=== PATIENT | female | born 1955 | race African-American/Black ===

== ENCOUNTER 2016-06-21 21:03 | Emergency (ER) | payer MEDICAID, OTHER ==
[~2016-06-21] VITALS: Ht 162.6 cm; Wt 89.0 kg
[~2016-06-21 21:03] MED LIST: AMLO5TAB4 PO; ASPI-1035 PO; LIP40 PO; NAPR550T4 PO
[2016-06-21] MEDS ORDERED: METOCLOPRAMIDE HCL 10MG/2ML VIAL IV ONE (23:45)
[2016-06-21] MEDS ORDERED: KETOROLAC 30MG/ML VIAL IV ONE (23:45)
[2016-06-21] MEDS ORDERED: SODIUM CHLORIDE 0.9% 1,000 ML IV ONE (23:45)
[2016-06-22 00:30] LABS: CHLORIDE 107 mEq/L (98-107); INDEX HEMOLYSI 1 (1-3); INDEX ICTERIC 1 (1-4); INDEX LIPEMIC 1 (1-3)
[2016-06-22 00:35] LABS: ANION GAP 12; CALCIUM 8.7 mg/dL (8.5-10.1); CARBON DIOXIDE 27 mEq/L (21-32); UREA NITROGEN BLOOD 5 mg/dL (7-21); eGFR > 60 mL/min (>60)
[2016-06-22 03:16] VITALS: BP 151/78
== END 2016-06-22 03:45 | disposition home or self-care (01) ==
LOC: ER 21:13
DX: R51 Headache (principal); I10 Essential (primary) hypertension; R11.0 Nausea; I25.2 Old myocardial infarction; J45.909 Unspecified asthma, uncomplicated; Z95.5 Presence of coronary angioplasty implant and graft; F17.200 Nicotine dependence, unspecified, uncomplicated; Z90.49 Acquired absence of other specified parts of digestive tract; Z79.82 Long term (current) use of aspirin; Z88.5 Allergy status to narcotic agent
CPT/HCPCS: 36415; 70450; 80048; 96361; 96374; 96375; 99285; J1885; J2765; J7030

== ENCOUNTER 2016-07-14 19:28 | Inpatient (IN) | payer MEDICAID ==
[~2016-07-14] VITALS: Ht 162.6 cm; Wt 88.9 kg
[2016-07-14] MEDS ORDERED: ONDANSETRON HCL 4MG/2ML VIAL IV STA (19:42)
[2016-07-14] MEDS ORDERED: MORPHINE SULFATE 4 MG/ML CPJ (NOT FOR IM USE) IV STA (19:42)
[2016-07-14 19:59] LABS: BASOPHILS % 2.2 % (0.0-2.0); EOSINOPHILS % 0.7 % (0.0-5.0); HEMATOCRIT. 44.4 % (36.0-48.0); HEMOGLOBIN. 14.9 g/dL (12.0-16.0); LYMPHOCYTES % 57.2 % (20.0-50.0); MEAN CORPUSCULAR HEMOGLOBIN 29.1 pg (28.0-32.0); MEAN CORPUSCULAR HGB CONC 33.6 g/dL (31.0-37.0); MEAN CORPUSCULAR VOLUME 86.8 fL (81.0-99.0); MEAN PLATELET VOLUME 8.4 fl (7.4-10.4); MONOCYTES % 8.3 % (2.0-8.0); NEUTROPHILS % 31.6 % (40.0-76.0); PLATELET 232 x1000/uL (130-400); RED BLOOD CELL COUNT 5.12 mill/uL (4.2-5.4); RED CELL DISTRIBUTION WIDTH 14.6 % (11.6-14.6); WHITE BLOOD COUNT 12.1 x1000/uL (4.5-11.0)
[2016-07-14] MEDS ORDERED: FENTANYL CITRATE/PF 50MCG/ML 2ML VIAL IV ONE (20:00)
[2016-07-14 20:06] LABS: INR 1.1; PROTHROMBIN TIME 11.2 sec
[2016-07-14 20:15] LABS: ALANINE AMINOTRANSFERASE 14 IU/L (13-61); ALBUMIN 3.3 g/dL (3.4-5.0); ANION GAP 11; CALCIUM 8.5 mg/dL (8.5-10.1); CARBON DIOXIDE 26 mEq/L (21-32); CHLORIDE 108 mEq/L (98-107); INDEX HEMOLYSI 1 (1-3); INDEX ICTERIC 1 (1-4); INDEX LIPEMIC 1 (1-3); NT PRO B-TYPE NATRIURETIC PEP 25 pg/mL (5-125); TROPONIN I < 0.02 ng/mL (0.00-0.04); UREA NITROGEN BLOOD 9 mg/dL (7-21); eGFR > 60 mL/min (>60)
[2016-07-14] MEDS ORDERED: ACETAMINOPHEN 325MG TABLET PO PRN (23:00)
[2016-07-14] MEDS ORDERED: CLONIDINE 0.1MG TABLET PO PRN (23:00)
[2016-07-14] MEDS ORDERED: HYDROCODONE/ACETAMINOPHEN 5/325MG TABLET PO PRN (23:00)
[2016-07-14] MEDS ORDERED: IPRATROPIUM/ALBUTEROL 0.5-3(2.5)MG/3ML NEB INH PRN (23:00)
[2016-07-14] MEDS ORDERED: ONDANSETRON HCL 4MG/2ML VIAL IV PRN (23:00)
[2016-07-14] MEDS ORDERED: ENOXAPARIN 40MG/0.4ML SYR SUBCUT SCH (23:00)
[2016-07-14] MEDS ORDERED: MAGNESIUM/ALUMINUM HYDROXIDE/SIMETHICONE 30ML UDC PO PRN (23:00)
[2016-07-14] MEDS ORDERED: DOCUSATE SODIUM 100MG CAPSULE PO PRN (23:00)
[2016-07-14 23:36] LABS: ANION GAP 11; CALCIUM 8.3 mg/dL (8.5-10.1); CARBON DIOXIDE 26 mEq/L (21-32); CHLORIDE 109 mEq/L (98-107); INDEX HEMOLYSI 1 (1-3); INDEX ICTERIC 1 (1-4); INDEX LIPEMIC 1 (1-3); MAGNESIUM 2.1 mg/dL (1.8-2.4); UREA NITROGEN BLOOD 9 mg/dL (7-21); eGFR > 60 mL/min (>60)
[2016-07-15 03:20] VITALS: BP 125/83
[2016-07-15 04:00] VITALS: BP 125/83
[2016-07-15] MEDS ORDERED: ESCI10TA54 PO (04:34)
[2016-07-15] MEDS ORDERED: GABA-531 PO (04:34)
[2016-07-15] MEDS ORDERED: VENTOLIN HFA 90MCG (04:34)
[2016-07-15] MEDS ORDERED: NAPROXEN SODIUM 500 MG PO PRN (04:45)
[2016-07-15] MEDS ORDERED: NAPROXEN 500MG TABLET PO PRN (04:49)
[2016-07-15 08:00] VITALS: BP 111/56
[2016-07-15 08:55] LABS: CREATINE KINASE 86 IU/L (26-192); CREATINE KINASE MB FRACTION < 0.5 ng/mL (0.5-3.6); HDL CHOLESTEROL 36 mg/dL (40-59); INDEX HEMOLYSI 1 (1-3); INDEX ICTERIC 1 (1-4); INDEX LIPEMIC 1 (1-3); LDL CHOLESTEROL 58 mg/dL (5-100); TRIGLYCERIDE 88 mg/dL (0-150); TROPONIN I < 0.02 ng/mL (0.00-0.04)
[2016-07-15] MEDS ORDERED: ATORVASTATIN CALCIUM 40MG TABLET PO SCH (09:00)
[2016-07-15] MEDS ORDERED: ENOXAPARIN 30MG/0.3ML SYR SUBCUT SCH (09:00)
[2016-07-15] MEDS ORDERED: CITALOPRAM HYDROBROMIDE 20MG TABLET PO SCH (09:00)
[2016-07-15] MEDS ORDERED: ASPIRIN 81MG EC TABLET PO SCH ×2 (09:00)
[2016-07-15] MEDS ORDERED: AMLODIPINE 10MG TABLET PO SCH (09:00)
[2016-07-15] MEDS ORDERED: MEDICATION NOT ON FORMULARY EA (Escitalopram Oxalate 1 TAB) PO SCH (09:00)
[2016-07-15] MEDS: GABAPENTIN 300MG CAPSULE PO SCH ×2 (09:11→14:35)
[2016-07-15] MEDS ORDERED: REGADENOSON 0.4 MG/5 ML IV ONE ×2 (10:45→12:12)
[2016-07-15 11:30] VITALS: BP 120/75
[2016-07-15 13:02] LABS: *AMPHETAMINES SCREEN URINE NEGATIVE (NEGATIVE); *BARBITURATES SCREEN URINE NEGATIVE (NEGATIVE); *BENZODIAZEPINES SCREEN URINE NEGATIVE (NEGATIVE); *COCAINE SCREEN URINE NEGATIVE (NEGATIVE); CANNABINOID URINE SCREEN NEGATIVE (NEGATIVE); ECSTASY MDMA SCREEN URINE NEGATIVE (NEGATIVE); METHADONE URINE SCREEN NEGATIVE (NEGATIVE); OPIATES URINE SCREEN NEGATIVE (NEGATIVE); PHENCYCLIDINE URINE SCREEN NEGATIVE (NEGATIVE)
[2016-07-15 15:40] VITALS: BP 120/75
[2016-07-15 16:33] LABS: CREATINE KINASE 88 IU/L (26-192); CREATINE KINASE MB FRACTION < 0.5 ng/mL (0.5-3.6); INDEX HEMOLYSI 1 (1-3); TROPONIN I < 0.02 ng/mL (0.00-0.04)
== END 2016-07-15 17:00 | disposition home or self-care (01) | DRG 198 ==
LOC: ER 19:28 → 6WST 23:06
PROVIDERS: ADMIT Internal Medicine; ATTEND Internal Medicine
DX: R07.89 Other chest pain (principal); I25.2 Old myocardial infarction; I11.9 Hypertensive heart disease without heart failure; I10 Essential (primary) hypertension; I25.10 Atherosclerotic heart disease of native coronary artery without angina pectoris; D64.9 Anemia, unspecified; E78.5 Hyperlipidemia, unspecified; F17.210 Nicotine dependence, cigarettes, uncomplicated; J45.909 Unspecified asthma, uncomplicated; Z95.5 Presence of coronary angioplasty implant and graft; Z82.49 Family history of ischemic heart disease and other diseases of the circulatory system; Z90.49 Acquired absence of other specified parts of digestive tract; Z88.6 Allergy status to analgesic agent
CPT/HCPCS: 36415; 71010; 78452; 80048; 80053; 80061; 80305; 82550; 82553; 83735; 83880; 84443; 84484; 85025; 85610; 93005; 93017; 93306; 93970; 96374; 96375; 99285; A9500; J1650; J2270; J2405; J2785; J3010

== ENCOUNTER 2017-08-07 13:50 | Emergency (ER) | payer MEDICAID ==
[~2017-08-07] VITALS: Ht 162.6 cm; Wt 85.0 kg
[~2017-08-07 13:50] MED LIST changes: -ASPI-1035 PO; +ASPI-1159 PO; +ESCI10TA54 PO; +GABA-531 PO; +NAPR-1164 PO; -NAPR550T4 PO; +VENTOLIN HFA 90MCG
[2017-08-07] MEDS ORDERED: CHLO25TA27 GT (13:59)
[2017-08-07] MEDS ORDERED: CARV3.1242 PO (13:59)
[2017-08-07] MEDS ORDERED: SODIUM CHLORIDE 0.9% 1,000 ML IV ONE (14:28)
[2017-08-07 14:54] LABS: BASOPHILS % 1.3 % (0.0-2.0); EOSINOPHILS % 1.1 % (0.0-5.0); HEMATOCRIT. 47.3 % (36.0-48.0); LYMPHOCYTES % 35.1 % (20.0-50.0); MEAN CORPUSCULAR HEMOGLOBIN 29.5 pg (28.0-32.0); MEAN CORPUSCULAR VOLUME 87.1 fL (81.0-99.0); MEAN PLATELET VOLUME 8.4 fl (7.4-10.4); MONOCYTES % 11.1 % (2.0-8.0); NEUTROPHILS % 51.4 % (40.0-76.0); PLATELET 249 x1000/uL (130-400); RED BLOOD CELL COUNT 5.43 mill/uL (4.2-5.4); RED CELL DISTRIBUTION WIDTH 13.9 % (11.6-14.6)
[2017-08-07 14:58] LABS: CHLORIDE 102 mEq/L (98-107)
[2017-08-07 14:59] LABS: INR 1.1; PROTHROMBIN TIME 11.6 sec (9.4-11.6)
[2017-08-07] MEDS ORDERED: FAMOTIDINE 20MG/2ML VIAL IV ONE (16:15)
[2017-08-07 17:07] VITALS: BP 149/72
== END 2017-08-07 17:11 | disposition home or self-care (01) ==
LOC: ER 13:50
DX: I95.1 Orthostatic hypotension (principal); I25.2 Old myocardial infarction; I10 Essential (primary) hypertension; Z88.5 Allergy status to narcotic agent
CPT/HCPCS: 36415; 71045; 80053; 83880; 84484; 85025; 85610; 93005; 96361; 96374; 99285; J3490; J7030

== ENCOUNTER 2018-08-11 11:29 | Inpatient (IN) | payer MEDICAID ==
[~2018-08-11] VITALS: Ht 162.6 cm; Wt 95.7 kg
[~2018-08-11 11:29] MED LIST changes: -ASPI-1159 PO; +ASPI-1393 PO; +CARV3.1242 PO; +CHLO25TA27 GT
[2018-08-11] MEDS ORDERED: ONDANSETRON HCL 4MG/2ML INJ IV STA ×2 (12:05→16:39)
[2018-08-11] MEDS ORDERED: KETOROLAC 30MG/ML VIAL IV STA (12:05)
[2018-08-11] MEDS ORDERED: SODIUM CHLORIDE 0.9% 1,000 ML IV ONE (12:05)
[2018-08-11 12:24] LABS: BASOPHILS % 0.8 % (0.0-2.0); EOSINOPHILS % 0.5 % (0.0-5.0); HEMOGLOBIN. 15.3 g/dL (12.0-16.0); LYMPHOCYTES % 24.1 % (20.0-50.0); MEAN CORPUSCULAR HEMOGLOBIN 29.4 pg (28.0-32.0); MEAN CORPUSCULAR VOLUME 88.4 fL (81.0-99.0); MEAN PLATELET VOLUME 8.6 fl (7.4-10.4); NEUTROPHILS % 67.6 % (40.0-76.0); PLATELET 258 x1000/uL (130-400); RED BLOOD CELL COUNT 5.21 mill/uL (4.2-5.4); RED CELL DISTRIBUTION WIDTH 14.9 % (11.6-14.6)
[2018-08-11 12:29] LABS: CHLORIDE 109 mEq/L (98-107)
[2018-08-11 12:34] LABS: INR 1.1; PARTIAL THROMBOPLASTIN TIME 25.5 sec (23.4-31.0); PROTHROMBIN TIME 11.1 sec (9.6-11.0)
[2018-08-11] MEDS ORDERED: KETOROLAC 15MG/ML VIAL IV SCH (12:45)
[2018-08-11 12:55] LABS: CLARITY URINE CLEAR (CLEAR); COLOR URINE YELLOW (YELLOW); KETONES URINE NEGATIVE (NEGATIVE); LEUKOCYTE ESTERASE URINE NEGATIVE (NEGATIVE); NITRITE URINE NEGATIVE (NEGATIVE); OCCULT BLOOD URINE NEGATIVE (NEGATIVE); PROTEIN URINE TRACE (NEGATIVE); SPECIFIC GRAVITY URINE 1.023 (1.005-1.030)
[2018-08-11] MEDS ORDERED: SODIUM CHLORIDE 0.9% 1000ML BAG (SEPSIS BOLUS) IV ONE (14:15)
[2018-08-11] MEDS ORDERED: LEVOFLOXACIN 750MG PREMIX 150 ML IV ONE (14:15)
[2018-08-11] MEDS ORDERED: MORPHINE SULFATE 4 MG/ML CPJ (NOT FOR IM USE) IV STA (16:39)
[2018-08-11] MEDS ORDERED: DIPHENHYDRAMINE 50MG/ML VIAL IV ONE (16:45)
[2018-08-11] MEDS ORDERED: IPRATROPIUM/ALBUTEROL 0.5-3(2.5)MG/3ML NEB INH PRN (17:15)
[2018-08-11] MEDS ORDERED: LEVOFLOXACIN 500MG PREMIX 100 ML IV SCH (17:15)
[2018-08-11] MEDS ORDERED: ACETAMINOPHEN 325MG TABLET PO PRN (17:15)
[2018-08-11] MEDS ORDERED: DOCUSATE SODIUM 100MG CAPSULE PO PRN (17:15)
[2018-08-11] MEDS ORDERED: GUAIFENESIN 200MG/10ML SUGAR FREE UDC PO PRN (17:15)
[2018-08-11] MEDS: DIPHENHYDRAMINE 50MG/ML VIAL IV PRN (21:10)
[2018-08-11] MEDS: CLONIDINE 0.1MG TABLET PO PRN (21:11)
[2018-08-11] MEDS ORDERED: ERGO2000 PO (22:05)
[2018-08-11 22:11] VITALS: BP 161/73
[2018-08-11 22:12] VITALS: BP 161/73
[2018-08-11] MEDS: ENOXAPARIN 40MG/0.4ML SYR SUBCUT SCH (22:28)
[2018-08-12] VITALS: BP 115/51
[2018-08-12] MEDS: HYDROMORPHONE HCL/PF 2MG/ML CPJ IV PRN ×3 (03:41→20:33)
[2018-08-12 04:00] VITALS: BP 120/53
[2018-08-12 06:51] LABS: CHLORIDE 113 mEq/L (98-107)
[2018-08-12 06:59] LABS: BASOPHILS % 0.6 % (0.0-2.0); HEMATOCRIT. 38.7 % (36.0-48.0); HEMOGLOBIN. 12.7 g/dL (12.0-16.0); LYMPHOCYTES % 52.5 % (20.0-50.0); MEAN CORPUSCULAR HEMOGLOBIN 29.1 pg (28.0-32.0); MEAN CORPUSCULAR VOLUME 88.7 fL (81.0-99.0); MEAN PLATELET VOLUME 8.8 fl (7.4-10.4); MONOCYTES % 8.7 % (2.0-8.0); NEUTROPHILS % 37.2 % (40.0-76.0); PLATELET 219 x1000/uL (130-400); RED BLOOD CELL COUNT 4.37 mill/uL (4.2-5.4); RED CELL DISTRIBUTION WIDTH 14.6 % (11.6-14.6)
[2018-08-12 07:06] LABS: CREATINE KINASE 111 IU/L (26-192); HDL CHOLESTEROL 27 mg/dL (40-59); LDL CHOLESTEROL 62 mg/dL (5-100)
[2018-08-12 07:11] LABS: CREATINE KINASE MB FRACTION 1.3 ng/mL (0.5-3.6)
[2018-08-12 08:00] VITALS: BP 135/56
[2018-08-12 12:00] VITALS: BP 126/68
[2018-08-12] MEDS: LEVOFLOXACIN 500MG PREMIX 100 ML IV SCH (14:31)
[2018-08-12 16:00] VITALS: BP 143/57
[2018-08-12 20:00] VITALS: BP 157/49
[2018-08-12] MEDS: ONDANSETRON HCL 4MG/2ML INJ IV PRN (20:32)
[2018-08-12] MEDS: ENOXAPARIN 40MG/0.4ML SYR SUBCUT SCH (20:32)
[2018-08-13] VITALS (7 sets, daily range): BP systolic 130–164; BP diastolic 50–84
[2018-08-13] MEDS: ONDANSETRON HCL 4MG/2ML INJ IV PRN ×2 (05:13→20:09)
[2018-08-13] MEDS: HYDROMORPHONE HCL/PF 2MG/ML CPJ IV PRN ×2 (05:16→17:08)
[2018-08-13] MEDS: HYDROCODONE/ACETAMINOPHEN 5/325MG TABLET PO PRN (12:47)
[2018-08-13] MEDS: LEVOFLOXACIN 500MG PREMIX 100 ML IV SCH (14:29)
[2018-08-13] MEDS: ENOXAPARIN 40MG/0.4ML SYR SUBCUT SCH (20:10)
[2018-08-14] VITALS: BP 136/55
[2018-08-14 04:00] VITALS: BP 140/65
[2018-08-14 08:00] VITALS: BP 111/54
[2018-08-14] MEDS: HYDROMORPHONE HCL/PF 2MG/ML CPJ IV PRN ×3 (11:02→21:02)
[2018-08-14 12:00] VITALS: BP 121/60
[2018-08-14] MEDS: LEVOFLOXACIN 500MG PREMIX 100 ML IV SCH (15:06)
[2018-08-14 16:00] VITALS: BP 141/52
[2018-08-14] MEDS ORDERED: ONDA4TAB5 MT (18:08)
[2018-08-14] MEDS ORDERED: HYDR-4001 MT (18:08)
[2018-08-14 20:00] VITALS: BP 166/57
[2018-08-14] MEDS: ENOXAPARIN 30MG/0.3ML SYR SUBCUT SCH (21:01)
[2018-08-15] VITALS: BP 140/53
[2018-08-15] MEDS: HYDROMORPHONE HCL/PF 2MG/ML CPJ IV PRN ×5 (01:45→23:37)
[2018-08-15] MEDS: ONDANSETRON HCL 4MG/2ML INJ IV PRN ×3 (01:45→18:30)
[2018-08-15 04:00] VITALS: BP 104/52
[2018-08-15 08:00] VITALS: BP 114/61
[2018-08-15] MEDS: ENOXAPARIN 30MG/0.3ML SYR SUBCUT SCH ×2 (08:08→21:00)
[2018-08-15] MEDS: LEVOFLOXACIN 500MG PREMIX 100 ML IV SCH (14:21)
[2018-08-15 16:00] VITALS: BP 121/63
[2018-08-15 20:00] VITALS: BP 113/49
[2018-08-15] MEDS: DIPHENHYDRAMINE 50MG/ML VIAL IV PRN (21:38)
[2018-08-16] VITALS: BP 94/45
[2018-08-16 01:06] LABS: BASOPHILS % 0.2 % (0.0-2.0); HEMATOCRIT. 37.2 % (36.0-48.0); HEMOGLOBIN. 12.6 g/dL (12.0-16.0); LYMPHOCYTES % 18.2 % (20.0-50.0); MEAN CORPUSCULAR HEMOGLOBIN 29.6 pg (28.0-32.0); MEAN CORPUSCULAR VOLUME 87.4 fL (81.0-99.0); MEAN PLATELET VOLUME 8.8 fl (7.4-10.4); NEUTROPHILS % 72.6 % (40.0-76.0); PLATELET 210 x1000/uL (130-400); RED BLOOD CELL COUNT 4.25 mill/uL (4.2-5.4); RED CELL DISTRIBUTION WIDTH 14.7 % (11.6-14.6)
[2018-08-16 01:17] LABS: CHLORIDE 105 mEq/L (98-107)
[2018-08-16 04:00] VITALS: BP 100/48
[2018-08-16] MEDS: HYDROMORPHONE HCL/PF 2MG/ML CPJ IV PRN ×4 (05:54→23:07)
[2018-08-16] MEDS: ONDANSETRON HCL 4MG/2ML INJ IV PRN ×2 (05:55→20:52)
[2018-08-16 06:26] LABS: BASOPHILS % 0.5 % (0.0-2.0); EOSINOPHILS % 0.1 % (0.0-5.0); HEMATOCRIT. 38.7 % (36.0-48.0); LYMPHOCYTES % 14.4 % (20.0-50.0); MEAN CORPUSCULAR HEMOGLOBIN 29.5 pg (28.0-32.0); MEAN CORPUSCULAR VOLUME 87.7 fL (81.0-99.0); MEAN PLATELET VOLUME 9.1 fl (7.4-10.4); MONOCYTES % 9.2 % (2.0-8.0); NEUTROPHILS % 75.8 % (40.0-76.0); PLATELET 221 x1000/uL (130-400); RED BLOOD CELL COUNT 4.41 mill/uL (4.2-5.4); RED CELL DISTRIBUTION WIDTH 14.7 % (11.6-14.6)
[2018-08-16 06:30] LABS: CHLORIDE 104 mEq/L (98-107)
[2018-08-16 08:00] VITALS: BP 99/42
[2018-08-16] MEDS: ENOXAPARIN 30MG/0.3ML SYR SUBCUT SCH (09:27)
[2018-08-16] MEDS ORDERED: PIPERACILLIN/TAZ 3.375G PREMIX 50 ML IV SCH (11:00)
[2018-08-16 12:00] VITALS: BP 105/54
[2018-08-16] MEDS: PIPERACILLIN/TAZ 3.375G PREMIX 50 ML IV SCH ×2 (12:34→18:00)
[2018-08-16 13:29] LABS: HEPATITIS B SURFACE ANTIGEN NEGATIVE
[2018-08-16 13:59] LABS: HEPATITIS A AB IGM NEGATIVE (NEGATIVE)
[2018-08-16] MEDS ORDERED: NEOSTIGMINE METHYLSULFATE 1MG/ML 10 ML VIAL ONE (14:37)
[2018-08-16] MEDS ORDERED: ROCURONIUM BROMIDE 10MG/ML VIAL 5ML IV ONE (14:37)
[2018-08-16] MEDS ORDERED: PROPOFOL 200MG/20ML VIAL IV ONE (14:37)
[2018-08-16] MEDS ORDERED: HYDROMORPHONE HCL/PF 2MG/ML (OR) ONE (14:37)
[2018-08-16] MEDS ORDERED: MIDAZOLAM HCL 2 MG/2 ML VIAL ONE (14:38)
[2018-08-16] MEDS ORDERED: GLYCOPYRROLATE 0.2 MG/ML 2ML VIAL ONE (14:38)
[2018-08-16] MEDS ORDERED: CEFAZOLIN SODIUM 1000MG/VIAL ONE (14:39)
[2018-08-16] MEDS ORDERED: SUCCINYLCHOLINE CHLORIDE 200MG/10ML IV ONE (14:39)
[2018-08-16] MEDS ORDERED: METOCLOPRAMIDE HCL 10MG/2ML VIAL ONE (15:57)
[2018-08-16] MEDS ORDERED: DEXAMETHASONE 4MG/ML 1ML VIAL ONE (15:57)
[2018-08-16] MEDS ORDERED: ONDANSETRON HCL 4MG/2ML INJ ONE (15:57)
[2018-08-16 20:00] VITALS: BP 130/51
[2018-08-16] MEDS: HYDROCODONE/ACETAMINOPHEN 5/325MG TABLET PO PRN (20:38)
[2018-08-17] VITALS: BP 117/52
[2018-08-17 04:00] VITALS: BP 119/56
[2018-08-17] MEDS: PIPERACILLIN/TAZ 3.375G PREMIX 50 ML IV SCH ×3 (05:55→18:04)
[2018-08-17] MEDS: HYDROMORPHONE HCL/PF 2MG/ML CPJ IV PRN ×5 (05:55→12:06)
[2018-08-17 07:00] LABS: BASOPHILS % 0.3 % (0.0-2.0); HEMATOCRIT. 38.5 % (36.0-48.0); HEMOGLOBIN. 12.7 g/dL (12.0-16.0); MEAN PLATELET VOLUME 9.4 fl (7.4-10.4); MONOCYTES % 9.6 % (2.0-8.0); NEUTROPHILS % 76.1 % (40.0-76.0); PLATELET 218 x1000/uL (130-400); RED BLOOD CELL COUNT 4.38 mill/uL (4.2-5.4); RED CELL DISTRIBUTION WIDTH 14.5 % (11.6-14.6)
[2018-08-17 07:20] LABS: CHLORIDE 103 mEq/L (98-107)
[2018-08-17 08:00] VITALS: BP 121/70
[2018-08-17] MEDS ORDERED: FENTANYL CITRATE/PF 50MCG/ML 2ML VIAL ONE (09:22)
[2018-08-17] MEDS ORDERED: MIDAZOLAM HCL 2 MG/2 ML VIAL ONE (09:22)
[2018-08-17] MEDS ORDERED: SUCCINYLCHOLINE CHLORIDE 200MG/10ML IV ONE (09:22)
[2018-08-17] MEDS ORDERED: ROCURONIUM BROMIDE 10MG/ML VIAL 5ML IV ONE (09:23)
[2018-08-17] MEDS ORDERED: CEFAZOLIN SODIUM 1000MG/VIAL ONE ×2 (09:23→09:46)
[2018-08-17] MEDS ORDERED: SODIUM CHLORIDE 0.9% 10ML VIAL ONE ×2 (09:23→09:43)
[2018-08-17] MEDS ORDERED: LIDOCAINE HCL/PF 1% 10 MG/ML 5ML VIAL ONE (09:23)
[2018-08-17] MEDS ORDERED: PROPOFOL 200MG/20ML VIAL IV ONE (09:23)
[2018-08-17] MEDS ORDERED: PHENYLEPHRINE HCL 10 MG/ML 1ML (IV VIAL) IV ONE (09:28)
[2018-08-17] MEDS ORDERED: NEOSTIGMINE METHYLSULFATE 1MG/ML 10 ML VIAL ONE (09:59)
[2018-08-17] MEDS ORDERED: GLYCOPYRROLATE 0.2 MG/ML 2ML VIAL ONE (09:59)
[2018-08-17] MEDS ORDERED: ONDANSETRON HCL 4MG/2ML INJ ONE (10:03)
[2018-08-17] MEDS ORDERED: DEXAMETHASONE 4MG/ML 1ML VIAL ONE (10:04)
[2018-08-17] MEDS ORDERED: SKIN ADHESIVE 0.7 GM EA TOP ONE ×2 (10:26→10:27)
[2018-08-17] MEDS ORDERED: LABETALOL HCL 5MG/ML VIAL 20ML IV ONE (10:37)
[2018-08-17] MEDS: ONDANSETRON HCL 4MG/2ML INJ IV PRN (11:26)
[2018-08-17] MEDS ORDERED: ACETAMINOPHEN 650MG SUPP PR PRN (11:30)
[2018-08-17] MEDS ORDERED: HYDROMORPHONE PCA 50 ML IV ONE (11:51)
[2018-08-17 12:00] VITALS: BP 150/71
[2018-08-17] MEDS ORDERED: HYDROMORPHONE PCA 10MG/50ML IV PRN (12:00)
[2018-08-17] MEDS ORDERED: NALOXONE INJ IV PRN (12:00)
[2018-08-17] MEDS ORDERED: DIPHENHYDRAMINE INJ IV PRN (12:00)
[2018-08-17] MEDS: CEFAZOLIN 1000MG PREMIX 50 ML IV SCH ×2 (12:30→19:59)
[2018-08-17] MEDS: ONDANSETRON INJ IV PRN (13:07)
[2018-08-17 16:00] VITALS: BP 140/75
[2018-08-17] MEDS: FAMOTIDINE 20MG/2ML VIAL IV SCH (19:59)
[2018-08-17 20:00] VITALS: BP 150/96
[2018-08-17] MEDS ORDERED: ONDANSETRON HCL 4MG/2ML INJ IV PRN (23:00)
[2018-08-18] VITALS: BP 172/84
[2018-08-18] MEDS: ONDANSETRON INJ IV PRN ×4 (00:18→17:09)
[2018-08-18] MEDS: PIPERACILLIN/TAZ 3.375G PREMIX 50 ML IV SCH ×5 (00:18→23:42)
[2018-08-18] MEDS: CLONIDINE 0.1MG TABLET PO PRN (01:34)
[2018-08-18 04:00] VITALS: BP 173/73
[2018-08-18] MEDS: CEFAZOLIN 1000MG PREMIX 50 ML IV SCH ×2 (04:19→15:38)
[2018-08-18 06:40] LABS: BASOPHILS % 0.1 % (0.0-2.0); HEMATOCRIT. 36.3 % (36.0-48.0); LYMPHOCYTES % 14.4 % (20.0-50.0); MEAN CORPUSCULAR HEMOGLOBIN 28.9 pg (28.0-32.0); MEAN PLATELET VOLUME 9.5 fl (7.4-10.4); MONOCYTES % 13.4 % (2.0-8.0); NEUTROPHILS % 72.1 % (40.0-76.0); PLATELET 234 x1000/uL (130-400); RED BLOOD CELL COUNT 4.13 mill/uL (4.2-5.4); RED CELL DISTRIBUTION WIDTH 14.4 % (11.6-14.6)
[2018-08-18 06:42] LABS: CHLORIDE 105 mEq/L (98-107)
[2018-08-18] MEDS ORDERED: KETOROLAC 30MG/ML VIAL IV PRN (07:45)
[2018-08-18] MEDS: FAMOTIDINE 20MG/2ML VIAL IV SCH ×2 (07:59→20:46)
[2018-08-18] MEDS: ENOXAPARIN 30MG/0.3ML SYR SUBCUT SCH ×2 (08:00→20:46)
[2018-08-18 08:30] VITALS: BP 168/82
[2018-08-18] MEDS: LORAZEPAM 0.5MG TABLET PO SCH ×2 (09:00→17:00)
[2018-08-18 12:30] VITALS: BP 154/62
[2018-08-18 16:30] VITALS: BP 126/76
[2018-08-18 20:00] VITALS: BP 141/52
[2018-08-19] VITALS (7 sets, daily range): BP systolic 98–180; BP diastolic 47–70
[2018-08-19] MEDS: ONDANSETRON INJ IV PRN ×2 (02:53→08:31)
[2018-08-19] MEDS: PIPERACILLIN/TAZ 3.375G PREMIX 50 ML IV SCH ×4 (05:24→23:37)
[2018-08-19] MEDS: CLONIDINE 0.1MG TABLET PO PRN (05:24)
[2018-08-19 05:39] LABS: BASOPHILS % 0.3 % (0.0-2.0); CHLORIDE 105 mEq/L (98-107); HEMATOCRIT. 35.4 % (36.0-48.0); HEMOGLOBIN. 11.8 g/dL (12.0-16.0); LYMPHOCYTES % 17.2 % (20.0-50.0); MEAN CORPUSCULAR HEMOGLOBIN 29.1 pg (28.0-32.0); MEAN CORPUSCULAR VOLUME 87.2 fL (81.0-99.0); MEAN PLATELET VOLUME 8.8 fl (7.4-10.4); MONOCYTES % 12.6 % (2.0-8.0); NEUTROPHILS % 69.9 % (40.0-76.0); PLATELET 262 x1000/uL (130-400); RED BLOOD CELL COUNT 4.05 mill/uL (4.2-5.4); RED CELL DISTRIBUTION WIDTH 14.2 % (11.6-14.6)
[2018-08-19] MEDS: FAMOTIDINE 20MG/2ML VIAL IV SCH ×2 (08:31→20:10)
[2018-08-19] MEDS: LORAZEPAM 0.5MG TABLET PO SCH ×2 (08:33→17:00)
[2018-08-19] MEDS: ENOXAPARIN 30MG/0.3ML SYR SUBCUT SCH ×2 (08:33→20:11)
[2018-08-19] MEDS ORDERED: HYDROMORPHONE PCA 50 ML IV PRN (15:13)
[2018-08-19] MEDS ORDERED: IBUPROFEN 800MG TABLET PO PRN (22:00)
[2018-08-19] MEDS ORDERED: OXYCODONE HCL/ACETAMINOPHEN 5/325MG TABLET PO PRN (22:00)
[2018-08-20] VITALS (7 sets, daily range): BP systolic 129–175; BP diastolic 51–70
[2018-08-20 05:06] LABS: HEMATOCRIT. 34.9 % (36.0-48.0); HEMOGLOBIN. 11.5 g/dL (12.0-16.0); MEAN CORPUSCULAR VOLUME 87.6 fL (81.0-99.0); MEAN PLATELET VOLUME 8.7 fl (7.4-10.4); PLATELET 258 x1000/uL (130-400); RED BLOOD CELL COUNT 3.98 mill/uL (4.2-5.4); RED CELL DISTRIBUTION WIDTH 14.1 % (11.6-14.6)
[2018-08-20] MEDS: PIPERACILLIN/TAZ 3.375G PREMIX 50 ML IV SCH ×4 (05:56→23:41)
[2018-08-20 06:42] LABS: CHLORIDE 102 mEq/L (98-107)
[2018-08-20] MEDS: LORAZEPAM 0.5MG TABLET PO SCH ×3 (09:00→17:00)
[2018-08-20] MEDS: FAMOTIDINE 20MG/2ML VIAL IV SCH ×3 (09:13→21:00)
[2018-08-20] MEDS: ENOXAPARIN 30MG/0.3ML SYR SUBCUT SCH ×2 (09:15→20:53)
[2018-08-20 10:40] LABS: PLATELET ESTIMATE NORMAL
[2018-08-20] MEDS ORDERED: POTASSIUM CHLORIDE 20MEQ/PACKET PO NR (14:30)
[2018-08-20] MEDS: MAGNESIUM/ALUMINUM HYDROXIDE/SIMETHICONE 30ML UDC PO PRN (18:35)
[2018-08-20] MEDS: AMLODIPINE 2.5MG TABLET PO SCH (20:53)
[2018-08-21] MEDS: MAGNESIUM/ALUMINUM HYDROXIDE/SIMETHICONE 30ML UDC PO PRN (03:21)
[2018-08-21 04:00] VITALS: BP 145/60
[2018-08-21] MEDS: PIPERACILLIN/TAZ 3.375G PREMIX 50 ML IV SCH ×2 (06:00→12:00)
[2018-08-21 07:01] LABS: HEMOGLOBIN. 12.5 g/dL (12.0-16.0); MEAN CORPUSCULAR HEMOGLOBIN 28.9 pg (28.0-32.0); MEAN PLATELET VOLUME 8.7 fl (7.4-10.4); PLATELET 310 x1000/uL (130-400); RED BLOOD CELL COUNT 4.31 mill/uL (4.2-5.4); RED CELL DISTRIBUTION WIDTH 14.1 % (11.6-14.6)
[2018-08-21 07:35] LABS: CHLORIDE 99 mEq/L (98-107)
[2018-08-21 08:00] VITALS: BP 121/61
[2018-08-21] MEDS ORDERED: POTASSIUM CHLORIDE 20MEQ/PACKET PO NR (08:15)
[2018-08-21] MEDS: LORAZEPAM 0.5MG TABLET PO SCH (08:44)
[2018-08-21] MEDS: ENOXAPARIN 30MG/0.3ML SYR SUBCUT SCH (08:45)
[2018-08-21] MEDS ORDERED: FAMOTIDINE 20MG TABLET PO SCH (09:00)
[2018-08-21] MEDS: AMLODIPINE 2.5MG TABLET PO SCH (09:12)
[2018-08-21 12:00] VITALS: BP 153/57
[2018-08-21 14:06] VITALS: BP 153/57
[2018-08-21 19:31] LABS: PLATELET ESTIMATE NORMAL
== END 2018-08-21 15:00 | disposition home or self-care (01) | DRG 951 ==
LOC: ER 11:31 → 7WST 16:48 → ENRESERV 19:37
PROVIDERS: ADMIT Internal Medicine; ATTEND Internal Medicine
PROC: 0UT94ZZ Resection of Uterus, Percutaneous Endoscopic Approach (ICD-10-PCS; principal; 2018-08-17)
PROC: 0UT74ZZ Resection of Bilateral Fallopian Tubes, Percutaneous Endoscopic Approach (ICD-10-PCS; 2018-08-17)
PROC: 0UT24ZZ Resection of Bilateral Ovaries, Percutaneous Endoscopic Approach (ICD-10-PCS; 2018-08-17)
DX: D49.59 Neoplasm of unspecified behavior of other genitourinary organ (principal); J18.9 Pneumonia, unspecified organism; E87.8 Other disorders of electrolyte and fluid balance, not elsewhere classified; E66.01 Morbid (severe) obesity due to excess calories; K56.7 Ileus, unspecified; N83.209 Unspecified ovarian cyst, unspecified side; Z68.36 Body mass index [BMI] 36.0-36.9, adult; D21.5 Benign neoplasm of connective and other soft tissue of pelvis; I10 Essential (primary) hypertension; E78.5 Hyperlipidemia, unspecified; F17.210 Nicotine dependence, cigarettes, uncomplicated; R74.0 Nonspecific elevation of levels of transaminase and lactic acid dehydrogenase [LDH]; E78.00 Pure hypercholesterolemia, unspecified; I25.10 Atherosclerotic heart disease of native coronary artery without angina pectoris; N83.519 Torsion of ovary and ovarian pedicle, unspecified side; Z95.5 Presence of coronary angioplasty implant and graft; Z88.5 Allergy status to narcotic agent; Z79.899 Other long term (current) drug therapy; Z90.49 Acquired absence of other specified parts of digestive tract; Z90.710 Acquired absence of both cervix and uterus; I25.2 Old myocardial infarction; Z79.82 Long term (current) use of aspirin; Z71.6 Tobacco abuse counseling; Z71.89 Other specified counseling
CPT/HCPCS: 36415; 71045; 72195; 74018; 74176; 76830; 76856; 80048; 80061; 80076; 82378; 82550; 82553; 82962; 83605; 83615; 83735; 83880; 84145; 84443; 84484; 86304; 86705; 86709; 86803; 86850; 86900; 87340; 88307; 88309; 88329; 93005; 93970; 99285; C1893; J0330; J0690; J1100; J1170; J1200; J1650; J1885; J1956; J2250; J2370; J2405; J2543; J2704; J2710; J2765; J3010; J3490; J7030; J7040; J7050

== ENCOUNTER 2021-01-06 10:44 | Emergency (ER) | payer MEDICAID ==
[~2021-01-06] VITALS: Ht 167.6 cm; Wt 80.0 kg
[~2021-01-06 10:44] MED LIST changes: -ASPI-1393 PO; +ASPI-1497 PO; -CARV3.1242 PO; -CHLO25TA27 GT; +ERGO2000 PO; -ESCI10TA54 PO; -GABA-531 PO; +HYDR-4001 MT; +ONDA4TAB5 MT; -VENTOLIN HFA 90MCG
[2021-01-06] MEDS ORDERED: FAMOTIDINE 20MG/2ML VIAL IV STA (11:03)
[2021-01-06 11:35] LABS: BASOPHILS % 1.1 % (0.0-2.0); EOSINOPHILS % 0.3 % (0.0-5.0); HEMATOCRIT. 44.7 % (36.0-48.0); HEMOGLOBIN. 15.1 g/dL (12.0-16.0); LYMPHOCYTES % 40.4 % (20.0-50.0); MEAN CORPUSCULAR HEMOGLOBIN 29.3 pg (28.0-32.0); MEAN CORPUSCULAR VOLUME 86.7 fL (81.0-99.0); MEAN PLATELET VOLUME 8.5 fl (7.4-10.4); NEUTROPHILS % 49.2 % (40.0-76.0); PLATELET 271 x1000/uL (130-400); RED BLOOD CELL COUNT 5.16 mill/uL (4.2-5.4); RED CELL DISTRIBUTION WIDTH 14.4 % (11.6-14.6)
[2021-01-06 11:41] LABS: CHLORIDE 108 mEq/L (98-107)
[2021-01-06 12:10] LABS: COLOR URINE DK YELLOW (YELLOW); KETONES URINE TRACE (NEGATIVE); LEUKOCYTE ESTERASE URINE TRACE (NEGATIVE); NITRITE URINE NEGATIVE (NEGATIVE); OCCULT BLOOD URINE NEGATIVE (NEGATIVE); PH URINE 5.5 (4.5-8.0); PROTEIN URINE 1+ (NEGATIVE); SPECIFIC GRAVITY URINE 1.028 (1.005-1.030)
[2021-01-06 12:11] LABS: CLARITY URINE SL HAZY (CLEAR)
[2021-01-06] MEDS ORDERED: ONDANSETRON HCL 4MG/2ML INJ IV STA (12:11)
[2021-01-06] MEDS ORDERED: DICYCLOMINE HCL 10MG/ML 2ML AMP IM ONE ×2 (12:15→13:00)
[2021-01-06] MEDS ORDERED: SODIUM CHLORIDE 0.9% 500 ML IV ONE (12:15)
[2021-01-06 13:30] VITALS: BP 153/75
[2021-01-06] MEDS ORDERED: LOPE2CAP MT (13:44)
[2021-01-06] MEDS ORDERED: ONDA8TAB13 MT (13:44)
[2021-01-06] MEDS ORDERED: AMOX-424 MT (13:44)
[2021-01-06] MEDS ORDERED: OMEP20CA14 MT (13:44)
== END 2021-01-06 14:35 | disposition home or self-care (01) ==
LOC: ER 10:44
DX: R10.13 Epigastric pain (principal); R07.9 Chest pain, unspecified; R11.0 Nausea; I10 Essential (primary) hypertension; J44.9 Chronic obstructive pulmonary disease, unspecified; E78.00 Pure hypercholesterolemia, unspecified; I25.2 Old myocardial infarction; F17.210 Nicotine dependence, cigarettes, uncomplicated; Z90.49 Acquired absence of other specified parts of digestive tract; Z79.82 Long term (current) use of aspirin; Z88.5 Allergy status to narcotic agent
CPT/HCPCS: 36415; 71045; 74176; 80053; 81003; 83690; 83880; 84484; 85025; 93005; 96372; 96374; 96375; 99285; J0500; J2405; J3490; J7040